=== PATIENT | female | born 1980 | race Two or more races ===

== ENCOUNTER 2019-10-07 23:21 | Emergency (ER) | payer OTHER ==
[~2019-10-07] VITALS: Ht 165.1 cm; Wt 120.7 kg
--- NOTE | 2019-10-07 23:49 | NUR ---
BIBS C/O BG OF 388 AT HOME, FLU LIKE SYMPTOMS, TAKING AMOXICILLIN AND PROMETHAZINE". TO ER BED 2 VSS, BG AT TIME OR ARRIVAL 338.
[2019-10-07] MEDS ORDERED: INSULIN REGULAR, HUMAN 100 UNIT/ML 10 ML VIAL ONE (23:54)
[2019-10-08] MEDS ORDERED: INSULIN REGULAR, HUMAN 100 UNIT/ML 3 ML VIAL IV ONE
[2019-10-08] MEDS ORDERED: IV NS 0.9% 1,000 ML BAG IV ONE
--- NOTE | 2019-10-08 01:13 | NUR ---
BG 288
--- NOTE | 2019-10-08 01:38 | NUR ---
BG 281
[2019-10-08 01:45] VITALS: BP 132/98
--- NOTE | 2019-10-08 01:45 | NUR ---
Patient discharged to home in stable condition. Written and verbal after care instructions given. Patient verbalizes understanding of instruction.
== END 2019-10-08 01:48 | disposition home or self-care (01) ==
LOC: ER 23:21
DX: E11.65 Type 2 diabetes mellitus with hyperglycemia (principal); I10 Essential (primary) hypertension; Z90.89 Acquired absence of other organs; Z88.1 Allergy status to other antibiotic agents
CPT/HCPCS: 82962 ×3; 96361; 96374; 99283; J1815; J7030